=== PATIENT | female | born 1950 | race Caucasian/White ===

== ENCOUNTER → 2018-07-29 16:00 | Outpatient (CLI) | payer MEDICARE, OTHER, SELFPAY ==
--- NOTE | 2018-07-29 16:10 | MRI_ITS ---
STUDY: MRI LUMBAR SPINE WITHOUT CONTRAST REASON FOR EXAM: Female, 67 years old. Low back pain left leg pain. TECHNIQUE: Standardized fat and water weighted pulse sequences were obtained in the sagittal and axial planes. COMPARISON: None FINDINGS: T12-L1: Normal endplates. Normal disc height, hydration and morphology. Normal bilateral facet joints. Normal central canal and bilateral lateral recesses. Normal bilateral intervertebral neural foramina. Normal lumbar lordosis. There is no substantial scoliosis. Normal conus medullaris that terminates at the L1 level. L1-2: Normal endplates. Normal disc height, hydration and morphology. Mild facet hypertrophy. Normal central canal and bilateral lateral recesses. Normal bilateral intervertebral neural foramina. L2-3: Normal endplates. Normal disc height, hydration and morphology. Moderate facet and ligamentous hypertrophy. Normal central canal and bilateral lateral recesses. Normal bilateral intervertebral neural foramina. L3-4: Normal endplates. Normal disc height, hydration and morphology. Moderate facet and ligamentous hypertrophy. Normal central canal and bilateral lateral recesses. Normal bilateral intervertebral neural foramina. L4-5: Normal endplates. Normal disc height, hydration and morphology. Moderate facet hypertrophy. Normal central canal and bilateral lateral recesses. Normal bilateral intervertebral neural foramina. L5-S1: Status post fusion with marked disc space narrowing. Fusion is partially mature. Normal central canal. Foramina are patent. Normal visualized sacral ala. Normal visualized paraspinous soft tissue structures. MRI/Spine Lumbar (Routine) IMPRESSION: 1. No disc protrusion, canal or high-grade foraminal stenosis. 2. Mild degenerative changes, detailed above. 3. Postsurgical changes at L5-S1. Electronically Signed: Charlene Vasques MD at 23:15 EST Tel , Service support ,
== END ==
PROVIDERS: Family Provider Family Medicine; PCP Family Medicine; Referring Provider Anesthesiology Pain Medicine; Visit Provider Anesthesiology Pain Medicine
DX: M54.9 Dorsalgia, unspecified (principal); M79.606 Pain in leg, unspecified
CPT/HCPCS: 72148

== ENCOUNTER → 2018-08-19 15:21 | Outpatient (CLI) | payer MEDICARE, OTHER, SELFPAY ==
[2018-08-19 17:57] LABS: Amphetamine Urine VISTA POSITIVE (<1000 ng/mL); Barbiturate Urine VISTA NEGATIVE (< 200 ng/mL); Benzodiazepine Urine VISTA NEGATIVE (< 200 ng/mL); Cocaine Urine VISTA NEGATIVE (< 300 ng/mL); Ecstacy Urine VISTA NEGATIVE (< 500 ng/mL); Methadone Urine VISTA NEGATIVE (< 300 ng/mL); PCP Urine VISTA NEGATIVE (< 25 ng/mL); THC Urine VISTA NEGATIVE (< 50 ng/mL); Vista UDS pH Range 6
--- OUTSIDE RECORDS SUMMARY | 2018-10-15 01:47 | XMS RPT_ITS ---
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 BP Cuff Size: Large Adult) Pulse 88 Resp 16 Ht 170.2 cm (5' 7) Wt 96.6 kg (213 lb) BMI 33.36 kg/m2 General Appearance: Well appearing, alert, in no acute distress, well-hydrated, well nourished., Obese. Skin: Skin color, texture, turgor normal, no suspicious rashes or lesions. Head: Normocephalic, no masses, lesions, tenderness or abnormalities. Eyes: Anicteric sclera. Pupils are equally round and reactive to light. Extraocular movements are intact. . Ears: External ears normal, canals clear. Nose/Sinuses: Nares normal, septum midline, mucosa normal, no drainage or sinus tenderness. Oropharynx: Lips, mucosa, and tongue normal, teeth and gums normal, oropharynx normal. Neck: Supple, no adenopathy; thyroid symmetric, normal size, no bruits. Lungs: Lungs clear to auscultation. No wheezing, rhonchi, rales. Heart: RRR without murmur, gallop, or rubs. No ectopy. Abdomen: Normal abdominal exam, Abdomen soft, non-tender. Bowel sounds normal. No masses, organomegaly. Extremities: No deformities, edema, skin discoloration. Musculoskeletal: Muscular strength intact, No joint swelling, deformity, or tenderness. Peripheral Pulses: Normal. Neurologic: Gait normal. Reflexes normal and symmetric. Sensation to light touch and crainal nerves 2-12 intact.. Health Maintenance List TETANUS due on 1963 MAMMOGRAM due on 1992 BONE DENSITY due on 2017 ADULT PREVNAR-13 due on 2017 PNEUMOVAX AGE 65 AND OVER WITH 5YR LOOKBACK(1) due on 2017 COLORECTAL CANCER SCREENING,SEE MODIFIER due on 08/22/2019 DIABETES SCREEN due on 12/24/2019 LIPID SCREEN due on 12/18/2021 INFLUENZA Completed HEPATITIS C SCREENING Completed Data reviewed A/P ASSESSMENT/PLAN: 1. Medicare annual wellness visit, subsequent - ICD9: V70.0, ICD10: Z00.00 (primary diagnosis) - Encouraged monthly Breast Self Exam - Follow up for annual exam in one year. 2. Essential hypertension with goal blood pressure less than 140/90 - ICD9: 401.9, ICD10: I10 - good control - Was not able to tolerate being on the lisinopril along with Zestoretic. - Continue current medication(s) - Recommended regular aerobic exercise. - Recommend home blood pressure monitoring, to bring results in on next visit - Goal of BP <140/90 3. Dyslipidemia - ICD9: 272.4, ICD10: E78.5 Await labs. - Encouraged following a low fat, low cholesterol diet. - Discussed the benefits of regular aerobic exercise and weight loss. - Encouraged following a low carbohydrate, healthy oil intake diet. 4. Acquired hypothyroidism - ICD9: 244.9, ICD10: E03.9 - Instructed patient on importance of taking on an empty stomach either first thing in the morning or at bedtime. - continue current dose of Synthroid 0.100 mg - Await lab 5. Gastroesophageal reflux disease without esophagitis - ICD9: 530.81, ICD10: K21.9 - Continue treatment with Prilosec 20 mg QD prn 6. Major depressive disorder, recurrent episode, moderate (HCC) - ICD9: 296.32, ICD10: F33.1 cont - DULOXETINE 60 MG CAPSULE,DELAYED RELEASE 7. Muscle spasm of back - ICD9: 724.8, ICD10: M62.830 Cont; Patient going to look into seeing if dr. Kaufman does neuro stimulators and let me know. - BACLOFEN 10 MG TABLET 8. Fibromyalgia - ICD9: 729.1, ICD10: M79.7 cont - DULOXETINE 60 MG CAPSULE,DELAYED RELEASE 9. Neuropathy (HCC) - ICD9: 355.9, ICD10: G62.9 - stable 10. Chronic pain disorder - ICD9: 338.4, ICD10: G89.4 - Will await input regarding her seeing Dr. Kaufman or if needs referral to another physician 11. 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 Intractable migraine without aura and without status migrainosus - ICD9: 346.11, ICD10: G43.019 - Clinically stable 13. Isolated proteinuria without specific morphologic lesion - ICD9: 791.0, ICD10: R80.0 - Cont with nephrology f/u 14. Need for vaccination - ICD9: V05.9, ICD10: Z23 - PNEUMOCOCCAL-13 VACCINE PCV-13 given 15. Screening for colon cancer - ICD9: V76.51, ICD10: Z12.11 Check - FECAL OCCULT BLOOD TEST 16. Screening for osteoporosis - ICD9: V82.81, ICD10: Z13.820 Check - DXA-AXIAL SKELETON 17. 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 MAYRA: No DULoxetine (CYMBALTA) 60 mg capsule 180 capsule 3 Sig: Take 1 capsule by mouth twice daily. MAYRA: No levothyroxine (SYNTHROID) 100 mcg tablet 102 tablet 3 Sig: Take one tab by mouth daily and two on Friday MAYRA: No Omeprazole Magnesium (PRILOSEC OTC) 20 mg tablet Sig: Take 1 tablet by mouth daily before breakfast. 1/2 hr before meal. As needed. lisinopril-hydrochlorothiazide (PRINZIDE,ZESTORETIC) 20-12.5 mg per tablet 90 tablet 3 Sig: Take 1 tablet by mouth every morning. MAYRA: No F/u in 6 months routine exam Time with patient face to face was 40 min for extensive exam and 10 min for medicare wellness exam. Antonio Caba MD ALLERGIES ALLERGIES DATE TYPE / CODE NAME / CODE REACTION SEVERITY SOURCE 07/07/2015 DRUG GABAPENTIN OTHER: SEE C INGREDI/419 [facility] [id number](SNOM Repository ED CT) 06/24/2014 Drug [id number] OTHER: SEE C Class/14493 REDUCTASE [address] [place] 1003(SNOMED INHIBITORS Repository CT) 10/14/2013 DRUG CODEINE GI UPSET INGREDI/419 [facility] 087992(SNOM Repository ED CT) 08/13/2013 Environ/420 [facility] [id number](SNOM [facility] [place] ED CT) Repository ENCOUNTERS ENCOUNTERS ADMIT/DISCHARGE ACCOUNT ADMITTING ENCOUNTER LOCATION SOURCE NUMBER CLASS 09/03/2018 [id number] [facility] ing:PT Repository 08/19/2018 [id number] [facility] ing:LAB Repository 07/29/2018 [id number] [facility] ing:MRI Repository 11/04/2017/02/13 [id number] Ambulatory [address] Repository PAYERS PAYERS ENCOUNTER GUARANTOR PAYER SUBSCRIBER SOURCE 09/03/2018 HARDEEP [id number] CR Insurance:MEDICARE BENTLEYDOB: Community [address] [place] [address], PART A olic [id number] [address]Yvx: Number: Repository [id number] (HP) Date:2006-06-22 09/03/2018 Secondary HARDEEP [facility] Insurance:AETNA SR BENTLEYDOB: Community SUPPLEMENT INSPolicy [id number] Hospital Number: Repository [id number] Date:[id number] SENIOR SUPPLEMENT [id number] [place] [id number]: 09/03/2018 Tertiary NOT GIVENUNK [place] Insurance:SELF PAY [facility] Number: Effective Repository Date:2018-08-31 08/19/2018 HARDEEP [id number] CR Insurance:MEDICARE BENTLEYDOB: [address], PART A [facility] [id number] [facility] [address]Kqx: Number: Repository [id number] () Date:2018-08-19 08/19/2018 Secondary HARDEEP [facility] Insurance:AETNA SR BENTLEYDOB: Community [facility] [id number] Hospital Number: Repository [id number] Date:[id number] SENIOR SUPPLEMENT INSP[address] [place] [phone]: 08/19/2018 Tertiary NOT GIVENUNK [place] Insurance:SELF PAY [facility] Number: Effective Repository Date:2018-08-19 07/29/2018 HARDEEP [facility] [id number] S Insurance:MEDICARE [facility] [id number], Number: Repository [place] [id number]: [id number] Date:2018-07-24 (HP) 07/29/2018 Secondary HARDEEP [place] Insurance:CEASAR LAINEZ: Community SUPPLEMENT INSPolicy [id number] [facility] Number: Repository [id number] Date:[id number] SENIOR SUPPLEMENT [address] [address], [place] [address]SX: 07/29/2018 Tertiary NOT GIVENUNK [place] Insurance:SELF PAY Community [facility] Number: Effective Repository Date:2018-07-24
== END ==
PROVIDERS: Family Provider Family Medicine; PCP Family Medicine; Referring Provider Anesthesiology Pain Medicine; Visit Provider Anesthesiology Pain Medicine
DX: F11.20 Opioid dependence, uncomplicated (principal)
CPT/HCPCS: 80307

== ENCOUNTER → 2018-11-18 13:08 | Outpatient (CLI) | payer MEDICARE, OTHER, SELFPAY ==
--- NOTE | 2018-11-18 13:39 | RAD_ITS ---
STUDY: X-RAY - RIGHT HIP and pelvis REASON FOR EXAM: Female, 68 years old. Right hip pain, no recent injury TECHNIQUE: 2 views of the hip. AP view of the pelvis COMPARISON: None. FINDINGS: Orthopedic hardware is seen in the lumbosacral region. There are mild degenerative changes of the SI joints. The bony pelvis is intact with no evidence of fracture or lytic or blastic osseous process. There is no evidence of fracture, dislocation, or significant degenerative disease of either hip joint. The soft tissues are unremarkable. RAD/HIP, UNI W/ Pelvis 2-3 Views IMPRESSION: Posterior spinal fusion changes noted at the lumbosacral junction. There are mild degenerative changes of the SI joints. The bony pelvis and left and right hips are otherwise within normal limits. Electronically Signed: Donny Harvey MD at 19:57 EST , Service support ,
== END ==
PROVIDERS: Family Provider Family Medicine; PCP Family Medicine; Referring Provider Anesthesiology Pain Medicine; Visit Provider Anesthesiology Pain Medicine
DX: M25.559 Pain in unspecified hip (principal)
CPT/HCPCS: 73502

== ENCOUNTER 2018-11-20 11:30 | Outpatient (RCR) | payer MEDICARE, OTHER, SELFPAY ==
--- NOTE | 2018-09-01 12:38 | HP.PTEVAL ---
Patient's Visit Information HARDEEP CHAUDHRY is a 68 year old F referred to Physical Therapy by Yobani Martinez with a diagnosis of BACK PAIN AND LEFT LEG WEAKNESS. Date of Evaluation: 09/01/18 Physical Therapist: Luna Kay - Visit Plan Frequency: 2-3x /Week Duration: 4-6 Weeks Plan: AQUATIC THERAPY FOR PAIN RELIEF POSTURE CORRECTION/STRENGTHENING, INSTRUCTION IN APPROPRIATE BODY MECHANICS AND ACTIVITY MODIFICATIONS. DLS STARTING WITH A NEUTRAL SPINE PROGRESSING ROM TOLERATED. JAZMÍN LE ROM, STRETCHING AND STRENGTHENING. HEP INSTRUCTION. - Subjective Findings: Work/Leisure: RETIRED. Disability: YES. WENT ON DISABILITY 2009 FOR HER BACK. Present symptoms: BACK PAIN. LEFT HIP, BUTTOCK, GROIN, THIGH, KNEE, LEG AND FOOT. LLE NUMBESS. OCCASSIONALLY RIGHT BUTTOCK, THIGH AND LEG PAIN. LEFT LE SX'S ARE SIGNIFICANTLY MORE THAN THE RIGHT. Present since: ABOUT 1996. Pain Scale: WORST 9/10, LEAST 1-2/10. Currently: 5/10. OVER-ALL PATIENT REPORTS HER SX'S ARE WORSENING. 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 Symptoms at onset: BACK. Worse: SITTING, STANDING, LIFTING, BENDING, SOMETIMES STRETCHING UP AND OUT WITH ARMS, PROLONGED WALKING, DIFFICULT TO GO GROCERY SHOPPING, CLEANDING HOUSE, CHANGING SHEETS ON BED, DUSTING, GETTING CLOTHES IN/OUT OF WASHER/DRIVING, GETTING IN/OUT OF SHOWER. Better: LYING DOWN, HEAT, STRETCHING - PIRIFORMIS STRETCH, ICY HOT, TRAMADOL, LYRICA. Disturbed sleep: YES. Previous history/Previous treatment: LUMBAR FUSION 2004, PHYSICAL THERAPY - ABOUT 3 YEARS AGO HAD BENEFIT FROM WATER THERAPY. MEDICATION. CHIROPRACTIC BEFORE FUSION BUT NOT SINCE. SELIN'S - MULTIPLE - ALOT. MOST RECENT SELIN WAS ABOUT A MONTH AGO AND SHE THINKS IT HELPED WITH THE OTHER MEDICINES. PATIENT REPORTS SHE HAS A HOME ELECTRICAL STIM UNIT BUT SHE STOPPED DUE TO IT SEEMING TO MAKE HER SCIATICA WORSE. Coughing/sneezing/straining: NO EFFECT. Gait: PATIENT REPORTS SHE WALKS SLOW AND SOMETIMES LIMPS. TAKES SMALL STEPS. DISTANCE LIMITED. TIME LIMITED. PATIENT REPORTS SHE USES A CANE NEEDED BECAUSE LEFT LEG GOES OUT ON HER. Difficulty initiating urinatin: NO. Accidents: ROLLER SKATING FALL MENTIONED ABOVE. Unexplained weight loss: NO. Imaging: LUMBAR MRI 07/29/18: IMPRESSION: 1. No disc protrusion, canal or high-grade foraminal stenosis. 2. Mild degenerative changes, detailed above. 3. Postsurgical changes at L5-S1. PMH: ARTHRITIS, HYPOTHYROIDISM, HTN. Recent major surgery: LUMBAR FUSION . PLOF (Prior Level of Function): PATIENT REPORTS SHE WAS ABLE TO GROCERY SHOP ONCE A WEEK UNTIL ABOUT 3-4 MONTHS AGO AND NOW HER PAIN LIMITS HER AND HER DAUGHTER DOES GROCERY SHOPPING FOR HER MORE. SHE REPORTS SHE WAS ALSO ABLE TO GO OUT TO EAT ONCE A WEEK ABOUT 3-4 MONTHS AGO BUT NOW UNABLE DUE TO DECREASED SITTING AND WALKING TOLERANCE. SHE ALSO WAS ABLE TO TRAVEL ABOUT 4 HOURS AND NOW CAN'T. STATES SHE WAS ABLE TO FLY TO [place] LAST YEAR BUT NOW DOESN'T FEEL LIKE SHE CAN DUE TO THE PAIN. OTHER: AFTER MRI PATIENT REPORTS DR. MARTINEZ TOLD HER SHE DOES NOT NEED MORE SURGERY. PATIENT REPORTS SHE HASN'T DONE POOL EX'S FOR ABOUT A YEAR AND FLOOR EX'S ALWAYS HURT. - Objective Sitting/Standing Posture: POOR. Lordosis: DECREASED. Active Correction of posture: WORSE. Other Observations: INDEP GAIT INTO PT WITHOUT LOB OR ANY AD'S. PATIENT WALKS WITH DECREASED CADANCE, DECREASED JAZMÍN STRIDE LENGTH AND A MILD LIMP ON THE LLE. SHE IS ABLE TO TRANSFER INDEP'LY FROM SIT TO STAND WITHOUT UE ASSIST. LEFT ILIAC CREST HIGHER THAN RIGHT. Motor deficit: RIGHT HIP 4/5, KNEE EXT 5/5, KNEE FLEX 5/5 ANKLE DORSI 5/5. LEFT HIP 3+/5, KNEE EXT 4-/5, KNEE FLEX 4/5, ANKLE 4/5. Sensory deficit: DECREASED LIGHT TOUCH LEFT LATERAL THIGH, LATERAL LEG, AND FOOT BUT ALSO SENSATIVE COMPARED TO THE RIGHT. ROM deficit: TIGHT JAZMÍN HS'S AND GASTROC SOLEUS COMPLEX'S. JAZMÍN HIP FLEXORS ARE ALSO TIGHT. Reflexes: UNABLE TO ELICIT JAZMÍN LE DTR'S. Dural Signs: POSITIVE JAZMÍN LE'S LEFT > RIGHT. Lumbar mvmt loss: flex - MOD. ext - MILY. R SG - MOD. L SG - MILY. INCREASED LEFT LBP WITH LUMBAR ROM TESTING ALL PLANES. Core strength: POOR - Goals Goal 1:: DECREASE C/O BACK AND JAZMÍN LE SX'S. Goal Time Frame: 4-6 Weeks Goal 2:: IMPROVE PERSONAL CARE, LIFTING, WALKING, SITTING, STANDING, SLEEP, SOCIAL LIFE, TRAVEL AND HOMEMAKING FUNCTION Goal Time Frame: 4-6 Weeks Goal 3:: INSTRUCT IN PROPHYLAXIS Goal Time Frame: 4-6 Weeks - Rehabilitation Potential Rehabilitation Potential: Fair - Anticipated Interventions Patient/Client Instruction: Educate patient on: Condition, Plan of Care, Risk Factors, Benefits of Fitness Program For the Purpose of:: To improve self management Therapeutic Exercise to Include: Strength training, Body mechanics, Postural training, Flexibilty training, Gait and locomotor training, In an aquatic setting, Dynamic Lumbar Stabilization For the Purpose of:: To decrease pain, To increase ROM, To improve muscle performance and motor function, To improve ability to perform ADL's, To increase tolerance to activity/condition/position, To improve ability of physical actions for home/community/work/leisure, To improve gait and locomotor functions Thank you for the opportunity to evaluate your patient. For Medicare and Medicare HMO plans, please review the plan of care and approve it. It will need to be FAXED BACK to us at [phone] for Medicare purposes. For Medicare only, by signing this I certify the plan of care. Please let me know if there are questions or concerns regarding this plan of care. Physician Signature: Date:
--- NOTE | 2018-09-30 12:05 | HP.PTREVAL ---
Yobani Mir MD, It has been my pleasure to treat HARDEEP CHAUDHRY over the last 9 visits for BACK PAIN AND LEFT LEG WEAKNESS. Please see the progress note below for an update on the physical therapy plan of care! Subjective: RIGHT LOW BACK SELIN PENDING OCT 06 2017. PATIENT REPORTS HER PAIN IS MORE RIGHT THAN LEFT NOW BUT HER LEG SX'S ARE MUCH BETTER VAST IMPROVEMENT (ABOUT 80% BETTER). PATIENT ALSO REPORTS HER LEFT LEG ISN'T GOING OUT ON HER OFTEN. NO FALLS. PATIENT STATES I KNOW MY GAIT IS BETTER AND I AM HAPPY WITH MY PROGRESS. Objective/Function: PATIENT IS REPORTING AND SHOWING SIGNS OF IMPROVEMENT AND PROGRESS TOWARD ALL PT GOALS HOWEVER SHE STILL HAS SIGNIFICANT LLE WEAKNESS. UPON EXAM: PATIENT DEMO'S. INDEP GAIT INTO PT WITHOUT LOB OR ANY AD'S. PATIENT STILL WALKS WITH DECREASED CADANCE, DECREASED JAZMÍN STRIDE LENGTH AND A MILD LIMP ON THE LLE. SHE IS ABLE TO TRANSFER INDEP'LY FROM SIT TO STAND WITHOUT UE ASSIST. LEFT ILIAC CREST HIGHER THAN RIGHT. Motor deficit: RIGHT HIP 4/5, KNEE EXT 5/5, KNEE FLEX 5/5 ANKLE DORSI 5/5. LEFT HIP 3+/5, KNEE EXT 4-/5, KNEE FLEX 4/5, ANKLE 4/5. Sensory deficit: JAZMÍN LE LIGHT TOUCH SENSATION FEELS SIMILAR TO EACH OTHER WITH TESTING TODAY. ROM deficit: TIGHT JAZMÍN HS'S AND GASTROC SOLEUS COMPLEX'S. JAZMÍN HIP FLEXORS ARE ALSO TIGHT. Dural Signs: POSITIVE LLE AND NEGATIVE RIGHT LE DURAL TESTING. Lumbar mvmt loss: flex - MIN - MILD INCREASED PAIN JAZMÍN LOW BACK. ext - MOD TO MILY - PATIENT DENIES INCREASED PAIN. R SG - MOD - NE. L SG - MOD - A LITTLE INCREASED LEFT LB PAIN. PATIENT DENIES ANY PAIN RADIATING DOWN EITHER LEG WITH LUMBAR ROM TESTING. INCREASED LEFT LBP WITH LUMBAR ROM TESTING ALL PLANES. Core strength: POOR. OTHER: THERE IS NO SIGNIFICANT CHANGE IN OSWESTRY SCORE TODAY. Plan Plan: CONTINUE AQUATIC THERAPY 2X/WK X 2 WKS IN THE POOL THEN 2X'S A WEEK X 2 WEEKS ON LAND BUT ALSO ONE ONE HOUR SESSION ON LAND WITH PT FOR FURTHER POSTURE AND MATERIAL STOCKKEEPER YARD TRAINING PER ORIG POC WORKING TOWARD THE SAME GOALS. PATIENT IS AGREEABLE. Goals Goal 1:: DECREASE C/O BACK AND JAZMÍN LE SX'S. Goal Time Frame: 4-6 Weeks Goal Progress: Progressing Goal 2:: IMPROVE PERSONAL CARE, LIFTING, WALKING, SITTING, STANDING, SLEEP, SOCIAL LIFE, TRAVEL AND HOMEMAKING FUNCTION Goal Time Frame: 4-6 Weeks Goal Progress: Progressing Goal 3:: INSTRUCT IN PROPHYLAXIS Goal Time Frame: 4-6 Weeks Goal Progress: Progressing Anticipated Interventions Patient/Client Instruction: Educate patient on: Condition, Plan of Care, Risk Factors, Benefits of Fitness Program For the Purpose of:: To improve self management Therapeutic Exercise to Include: Strength training, Body mechanics, Postural training, Flexibilty training, Gait and locomotor training, In an aquatic setting, Dynamic Lumbar Stabilization For the Purpose of:: To decrease pain, To increase ROM, To improve muscle performance and motor function, To improve ability to perform ADL's, To increase tolerance to activity/condition/position, To improve ability of physical actions for home/community/work/leisure, To improve gait and locomotor functions Please do not hesitate to contact me at [phone] by phone or if you have questions or concerns regarding this new plan of care! Sincerely, Luna Kay, PT, Cert MDT
--- NOTE | 2018-10-28 12:04 | HP.PTREVAL ---
Yobani Martinez MD, It has been my pleasure to treat HARDEEP CHAUDHRY over the last 16 visits for BACK PAIN AND LEFT LEG WEAKNESS. Please see the progress note below for an update on the physical therapy plan of care! Subjective: PATIENT REPORTS SHE IS DOING PRETTY GOOD AND THINKS THE THERAPY IS REALLY HELPING. PATIENT REPORTS SHE IS ABLE TO DO SOME GROCERY SHOPPING ON HER OWN NOW. WANTS TO BE ABLE TO FLY NON STOP TO [place] AND TO BE ABLE TO DO SOME DANCING AT HOME AGAIN. WANTS TO TRY TO GET LEFT LEG STRONGER. REC'D LEFT LB INJECTION ABOUT A MONTH AGO AND PATIENT FEELS THIS HELPED. FOLLOW UP PENDING WITH DR. MARTINEZ PENDING 11/18/18. PATIENT REPORTS SHE PLANS TO GET A MEMBERSHIP AT [employer] FOR [employer] POOL EX. I AM THANKFUL FOR MY PROGRESS. Objective/Function: PATIENT IS CONTINUING TO REPORT AND SHOWING SIGNS OF IMPROVEMENT AND PROGRESS TOWARD ALL PT GOALS HOWEVER SHE STILL HAS SIGNIFICANT LLE WEAKNESS. UPON EXAM: PATIENT DEMO'S. INDEP GAIT INTO PT WITHOUT LOB OR ANY AD'S. PATIENT STILL WALKS WITH DECREASED CADANCE, DECREASED JAZMÍN STRIDE LENGTH AND A MILD LIMP ON THE LLE. SHE IS ABLE TO TRANSFER INDEP'LY FROM SIT TO STAND WITHOUT UE ASSIST. LEFT ILIAC CREST HIGHER THAN RIGHT. Motor deficit: RIGHT HIP 4/5, KNEE EXT 5/5, KNEE FLEX 5/5 ANKLE DORSI 5/5. LEFT HIP 3+/5, KNEE EXT 4-/5, KNEE FLEX 4/5, ANKLE 4/5. Sensory deficit: JAZMÍN LE LIGHT TOUCH SENSATION FEELS SIMILAR TO EACH OTHER WITH TESTING TODAY BUT FEET NT. ROM deficit: TIGHT JAZMÍN HS'S AND GASTROC SOLEUS COMPLEX'S. JAZMÍN HIP FLEXORS ARE ALSO TIGHT. Dural Signs: NEGATIVE JAZMÍN LE DURAL TESTING. Lumbar mvmt loss: flex - MIN - PATIENT DENIES INCREASED PAIN. ext - MOD TO MILY - PATIENT DENIES INCREASED PAIN. R SG - MOD - NE. L SG - MOD - A LITTLE INCREASED LEFT LB PAIN. PATIENT DENIES ANY PAIN RADIATING DOWN EITHER LEG WITH LUMBAR ROM TESTING. Core strength: POOR. OTHER: LUMBAR OSWESTRY SCORE HAS IMRPOVED FROM 25 TO 20. PATIENT IS A GOOD CANDIDATE TO CONT PT WORKING TOWARD INDEP HEP. Plan Plan: CONT PER POC WORKING TOWARD INDEP HEP Goals Goal 1:: DECREASE C/O BACK AND JAZMÍN LE SX'S. Goal Time Frame: 4-6 Weeks Goal Progress: Progressing Goal 2:: IMPROVE PERSONAL CARE, LIFTING, WALKING, SITTING, STANDING, SLEEP, SOCIAL LIFE, TRAVEL AND HOMEMAKING FUNCTION Goal Time Frame: 4-6 Weeks Goal Progress: Progressing Goal 3:: INSTRUCT IN PROPHYLAXIS Goal Time Frame: 4-6 Weeks Goal Progress: Progressing Anticipated Interventions Patient/Client Instruction: Educate patient on: Condition, Plan of Care, Risk Factors, Benefits of Fitness Program For the Purpose of:: To improve self management Therapeutic Exercise to Include: Strength training, Body mechanics, Postural training, Flexibilty training, Gait and locomotor training, In an aquatic setting, Dynamic Lumbar Stabilization For the Purpose of:: To decrease pain, To increase ROM, To improve muscle performance and motor function, To improve ability to perform ADL's, To increase tolerance to activity/condition/position, To improve ability of physical actions for home/community/work/leisure, To improve gait and locomotor functions Please do not hesitate to contact me at [phone] by phone or if you have questions or concerns regarding this new plan of care! Sincerely, Luna Kay, PT, Cert MDT
--- NOTE | 2018-11-20 11:56 | HP.PTDCSUM_ITS ---
HP - PT D/C Summary It has been my pleasure to treat HARDEEP CHAUDHRY under orders from Yobani Mir MD, for the diagnosis of BACK PAIN AND LEFT LEG WEAKNESS for a total of 21 visit(s). Discharge Date: Please see the following information for a summary of their discharge status. - Subjective Subjective: I'M FEELING MORE LIKE MY YOUNGER SELF. PATIENT REPORTS THAT LAST WEEK SHE ACTUALLY WALKED A HALF MILE. ALSO ABLE TO DANCE FOR ABOUT 20 MINUTES. PATIENT REPORTS NO FURTHER INJECTIONS PENDING AT THIS TIME. PATIENT REPORTS SHE WAS IN A LOT OF PAIN FOR SEVERAL DAYS AFTER LAST VISIT - I DEFINATELY THINK I OVER DID IT. PATIENT REPORTS SHE IS GOING TO WORK INTO SOME OF THE EX'S FROM LAST SESSION AT HOME MORE SLOWLY. - Pain Lumbar Spine Pain Intensity (Out of 10): 4 LLE Pain Intensity (Out of 10): 4 RLE Pain Intensity (Out of 10): 0 - Overall Improvement % Improvement: 80 - Objective Objective/Function: PATIENT HAS MADE GREAT PROGRESS TOWARD ALL PT GOALS. SHE IS INDEP WITH A HEP AND IS STILL GOING TO JOIN THE [facility]. UPON EXAM: PATIENT DEMO'S. INDEP GAIT INTO PT WITHOUT LOB OR ANY AD'S. PATIENT STILL WALKS WITH DECREASED CADANCE, DECREASED JAZMÍN STRIDE LENGTH AND A MILD LIMP ON THE LLE BUT THIS IS CONTINUING TO IMPROVE. SHE IS ABLE TO TRANSFER INDEP'LY FROM SIT TO STAND WITHOUT UE ASSIST. LEFT ILIAC CREST HIGHER THAN RIGHT. Motor deficit: RIGHT HIP 4/5, KNEE EXT 5/5, KNEE FLEX 5/5 ANKLE DORSI 5/5. LEFT HIP 4-/5, KNEE EXT 4/5, KNEE FLEX 4/5, ANKLE 4/5. ROM deficit: TIGHT JAZMÍN HS'S AND GASTROC SOLEUS COMPLEX'S. JAZMÍN HIP FLEXORS ARE ALSO TIGHT. Dural Signs: NEGATIVE JAZMÍN LE DURAL TESTING. Lumbar mvmt loss: flex - NIL. ext - MOD - PATIENT DENIES INCREASED PAIN. R SG - MOD - NE. L SG - MOD - A LITTLE INCREASED LEFT LB PAIN. PATIENT DENIES ANY PAIN RADIATING DOWN EITHER LEG WITH LUMBAR ROM TESTING. Core strength: POOR. OTHER: LUMBAR OSWESTRY SCORE HAS IMRPOVED FROM 20 TO 17. - Goals Goal 1:: DECREASE C/O BACK AND JAZMÍN LE SX'S. Goal Progress: Goal Met Goal 2:: IMPROVE PERSONAL CARE, LIFTING, WALKING, SITTING, STANDING, SLEEP, SOCIAL LIFE, TRAVEL AND HOMEMAKING FUNCTION Goal Progress: Goal Met Goal 3:: INSTRUCT IN PROPHYLAXIS Goal Progress: Goal Met - Plan Plan: D/C. PATIENT IS AGREEABLE. - D/C Information If there are questions or concerns regarding this patient's physical therapy, please feel free to call me at [phone]. Thank you for the referral of this patient. Sincerely, Luna Kay, PT, Cert MDT
== END 2018-11-20 19:00 | disposition home or self-care (01) ==
LOC: PT 11:30
PROVIDERS: Family Provider Family Medicine; PCP Family Medicine; Referring Provider Anesthesiology Pain Medicine; Visit Provider Anesthesiology Pain Medicine
DX: M54.9 Dorsalgia, unspecified (principal); R53.1 Weakness
CPT/HCPCS: 97110; 97113; 97162; 97530

== ENCOUNTER → 2019-03-04 12:16 | Outpatient (CLI) | payer MEDICARE, OTHER, SELFPAY ==
[2019-03-04 13:59] LABS: Amphetamine Urine VISTA POSITIVE (<1000 ng/mL); Barbiturate Urine VISTA NEGATIVE (< 200 ng/mL); Benzodiazepine Urine VISTA NEGATIVE (< 200 ng/mL); Cocaine Urine VISTA NEGATIVE (< 300 ng/mL); Ecstacy Urine VISTA NEGATIVE (< 500 ng/mL); Methadone Urine VISTA NEGATIVE (< 300 ng/mL); PCP Urine VISTA NEGATIVE (< 25 ng/mL); THC Urine VISTA NEGATIVE (< 50 ng/mL); Vista UDS pH Range 5
== END ==
PROVIDERS: Family Provider Family Medicine; PCP Family Medicine; Referring Provider Anesthesiology Pain Medicine; Visit Provider Anesthesiology Pain Medicine
DX: F11.20 Opioid dependence, uncomplicated (principal)
CPT/HCPCS: 80307

== ENCOUNTER → 2019-06-17 11:13 | Outpatient (CLI) | payer MEDICARE, OTHER, SELFPAY ==
--- NOTE | 2019-06-17 11:17 | RAD_ITS ---
STUDY: X-RAY - LUMBAR SPINE REASON FOR EXAM: Female, 68 years old. Low back pain with radiation toward right lower extremity, history of fall TECHNIQUE: 3 view(s) of the lumbar spine were obtained. COMPARISON: None FINDINGS: Normal lumbar lordosis. There is no substantial scoliosis. There is a normal alignment of the vertebrae. There are posterior spinal fusion changes with rods and pedicular screws at the L5-S1 level. There is narrowing of the L5-S1 disc space. The soft tissue structures are unremarkable. RAD/Lumbar Spine 2 or 3 Views IMPRESSION: Posterior fusion with rods and interpeduncular screws at the L5-S1 level. Narrowing of the L5-S1 disc space. There is no evidence of fracture or spondylolisthesis. Electronically Signed: Donny Harvey MD at 21:49 EDT , Service support ,
== END ==
PROVIDERS: Family Provider Family Medicine; PCP Family Medicine; Referring Provider Anesthesiology Pain Medicine; Visit Provider Anesthesiology Pain Medicine
DX: M54.9 Dorsalgia, unspecified (principal)
CPT/HCPCS: 72100